=== PATIENT | male | born 1990 | race Hispanic/Latino ===

== ENCOUNTER 2019-11-28 12:14 | Emergency (ER) | payer OTHER ==
[2019-11-28 13:26] LABS: RAPID GROUP A STREP NEGATIVE (NEGATIVE)
== END 2019-11-28 13:54 | disposition home or self-care (01) ==
LOC: EDH 12:14
DX: J11.1 Influenza due to unidentified influenza virus with other respiratory manifestations (principal)
CPT/HCPCS: 87804; 87880